=== PATIENT | female | born 1985 | race Caucasian/White ===

== ENCOUNTER 2019-06-20 08:32 | Emergency (ER) | payer OTHER, SELFPAY ==
--- NOTE | 2019-06-20 09:06 | ED.GENADULT ---
HPI - General Adult General Chief complaint: Upper Respiratory Infection Stated complaint: Left ear pain/Sore throat Time Seen by Provider: 06/20/19 09:06 Source: patient Mode of arrival: ambulatory Limitations: no limitations History of Present Illness HPI narrative: 34-year-old female patient presents to the [facility] with complaints of sore throat left ear pain that started last night. Patient states that she took some Tylenol last night for the pain but denies take anything this morning. Denies any fevers, runny nose, coughing, chest pain, shortness of breath or abdominal pain. Patient states she did get a flu shot this year. Patient denies any or breast-feeding at this time. Related Data Allergies Allergy/AdvReac Type Severity Reaction Status Date / Time ondansetron [From Zofran] Allergy Anxiety Verified 06/20/19 09:45 Review of Systems Review of Systems: Narrative: CONSTITUTIONAL: Denies fever, chills, or sweats. EYES: Denies visual changes, redness, or discharge. ENT: Denies rhinorrhea, congestion, positive left side sore throat, positive left otalgia. CARDIOVASCULAR: Denies chest pain, palpitations, or edema. RESPIRATORY: Denies cough or dyspnea. GASTROINTESTINAL: Denies abdominal pain, nausea, vomiting, or diarrhea. GENITOURINARY: Denies dysuria or hematuria. SKIN: Denies rash or itching. MUSCULOSKELETAL: Denies back pain, joint pain, or myalgia. NEUROLOGIC: Denies headache, numbness, or weakness. PSYCHIATRIC: Denies anxiety or depression. [facility] Social History Social History Gender identity (if verbalized by the patient): Female Comments At the time of my signature I agree with nursing past medical history, surgical, social, and family history. There is no relevant family history pertinent to the presenting complaint. Exam Narrative: Exam Narrative: GENERAL: Well-appearing, well-nourished, and in no acute distress. HEAD: Normocephalic, atraumatic. EYES: PERRLA and EOMI. ENT: Nares clear, no rhinorrhea or epistaxis. Mucous membranes moist. Posterior pharynx with redness and 2+ tonsil enlargement noted to the left side. Bilateral TMs appear cloudy but there is no erythema or foreign bodies in the canal. NECK: Supple. No lymphadenopathy CHEST: Clear to auscultation. No respiratory distress. HEART: Regular rate and rhythm. No murmur heard. Normal peripheral pulses. ABDOMEN: Soft, nontender, nondistended, normal active bowel sounds. EXTREMITIES: Normal range of motion. No edema. SKIN: Warm, dry, no rash. NEURO: No focal deficits. Alert and oriented x3. Course Reevaluation(s) Reevaluation #1: Notified patient that she is positive today for strep. Discussed with her I will discharge her home with an antibiotic for the strep infection and she can continue taking Tylenol and ibuprofen as needed for the pain. Discussed with patient that if she has worsening symptoms such as unable to swallow, or trouble breathing that she would need to go the ER for further evaluation and treatment. Patient verbalized understanding denies any other questions or concerns at this time. Date: 06/20/19 Time: 10:00 Vital Signs Vital signs: Vital signs reviewed. Medical Decision Making Differential Diagnosis Differential Diagnosis: Differential diagnosis: Allergic rhinitis, chronic sinusitis, tonsillitis, acute sinusitis, infectious mononucleosis, seasonal influenza, pertussis, diphtheria, meningococcal disease, viral syndrome, viral bronchitis, RSV. Plan of care for patient is to swab her today for strep. I will reassess her once this is resulted Critical Care Time Critical Care Time Critical Care Time: No Discharge Plan Discharge Clinical Impression: Strep pharyngitis Acute tonsillitis Qualifiers: Pharyngitis/tonsillitis etiology: streptococcus Streptococcal tonsillitis recurrence: non-recurrent Qualified Code(s): J03.00 - Acute streptococcal tonsillitis, unspe
[2019-06-20 09:38] VITALS: BP 110/69; PULSE 94; RESP 16; TEMP 36.8; O2SAT 98
== END 2019-06-20 10:09 | disposition home or self-care (01) ==
PROVIDERS: Emergency Provider Nurse Practitioner Family
DX: J02.0 Streptococcal pharyngitis (principal)
CPT/HCPCS: 87880; 99213; G0463

== ENCOUNTER 2025-03-18 16:07 | Emergency (ER) | payer OTHER, SELFPAY ==
--- OUTSIDE RECORDS SUMMARY | 2025-03-18 16:13 | XMS_ITS | Clinical Summary ---
Author Organization [facility] Care Team Providers Care Television Inspector Name Role Phone Tyler Escobar MD Primary Care Provider [phone] Benjy Fermin MD Unavailable [phone] Allergies Active Allergy Reactions Criticality Noted Date Comments Metoclopramide Anxiety Low 07/18/2017 Medications magnesium gluconate 200 mg tabletIndicatio ns:hypomagnesem ia 1 tablet (200 mg total) Active 25/iron fum/folic/dha (-1 ORAL) Take by mouth Active cholecalciferol (VITAMIN D-3) 2000 unit tablet Take 1 tablet (2,000 Units total) by mouth daily 30 tablet 7 2 Active Additional Information Patient not taking.Reported on 02/20/2025 mupirocin (BACTROBAN) 2 % ointment Apply topically 3 (three) times a day 22 g 3 Active Additional Information Patient not taking.Reported on 02/20/2025 escitalopram (LEXAPRO) 10 mg tablet Take 1 tablet (10 mg total) by mouth daily 30 tablet 2 5 Active Active Problems Problem Noted Date Diagnosed Date Fatigue 03/04/2025 Moderate major depression 03/04/2025 History of gestational diabetes 03/27/2022 Overview (03/27/2022): X 2. Diet controlled in 2018. Multigravida of advanced maternal age in third t rimester 03/27/2022 Overview (03/27/2022): Discussed increased risk of autosomal trisomies and offered testing. Class 1 obesity due to exces s calories without serious comorbidity with body mass index (BMI) of 31.0 to 31.9 in adult 08/28/2021 Assessment & Plan (08/28/2021 10:07 AM CDT): Discussed healthy diet and importance of regular physical activity. Mild episode of recurrent major depressive disor radha 08/28/2021 Assessment & Plan (08/28/2021 10:08 AM CDT): PHQ= 1 Sertraline increased today, will monitor response. Recommended counseling with patient. Discussed benefits of exercise, adequate sleep and healthy diet. Patient denies any SI/HI. Weight gain 04/08/2021 Assessment & Plan (04/08/2021 12:41 PM COMPUTER INFORMATION SYSTEMS INSTRUCTOR): Patient to follow up with PCP to discuss possibility of starting a weight loss medication. Informed patient I do not personally feel comfortable in managing prescription weight loss medication due to the possible side effects and need for frequent follow up/evaluation while taking. Encouraged to continue healthy eating and exercise. May find benefit in consulting with a nutritionists. List of local nutrition specialists in the area given that she can contact if desires. Hyperhidrosis 12/28/2020 Assessment & Plan (12/28/2020 5:39 PM CDT): Patient requesting referral to dermatology. Radial styloid tenosynovitis (de quervain) 12/28 Assessment & Plan (12/28/2020 5:39 PM CDT): Steroid prescribed. Discussed need to rest wrist, and reviewed proper body mechanics. Encouraged use of home brace. Follow up if no improvement or new/worsening symptoms. Encounter for screening for lipid disorder 12/28 Assessment & Plan (08/28/2021 10:06 AM CDT): 12/26/20 TC 256 TRG 76 HDL 76 LDL 165 Will repeat fasting labs and notify patient of results as they are received. Patient to continue to follow a healthy diet and weekly exercise. Assessment & Plan (12/28/2020 5:26 PM CDT): Will check labs today and make adjustments to medications as needed. Reviewed diet and exercise recommendations. BMI 29.0-29.9,adult 07/02/2020 Assessment & Plan (12/28/2020 7:45 PM CDT): Discussed healthy diet and importance of regular physical activity. Assessment & Plan (07/02/2020 4:08 PM COMPUTER INFORMATION SYSTEMS INSTRUCTOR): Reviewed need to lose weight, reviewed health benefits. Reviewed recommendations for daily intake & activity 20-30 minutes/day. Discussed healthy diet and importance of regular physical activity. Vitamin D deficiency 06/09/2017 Generalized anxiety disorder 10/25/2012 Overview (07/30/2016): Anxiety Assessment & Plan (08/28/2021 10:07 AM CDT): Will increase sertraline from 50-100 mg daily and monitor response. Discussed benefits of a cognitive behavioral therapy/counseling with patient. Follow-up in 12 weeks or sooner if experiencing any new or worsening moods. Assessment & Plan (12/28/2020 7:45 PM CDT): Doing well on sertraline and prn alprazolam. No changes made at this time. Discussed benefits of healthy lifestyle and suggested counseling. Discussed sharing house hold chores with spouse/family to decrease stress. Reviewed med Ses & scheduling. Alprazolam last filled 08/05/20. Assessment & Plan (07/03/2020 9:12 PM COMPUTER INFORMATION SYSTEMS INSTRUCTOR): States that anxiety not daily. Needing prn anxiolytic. Agreeable to alprazolam 0.5mg prn #20 sent. Reviewed med SE & scheduling. Discussed tolerance as a concern. Discussed hydroxyzine & buspar for panic attakcs. Will check w/medications at home (list of meds she's taken). Aware that daily med may be needed if increased frequency of alprazolam use. Aware that she needs to rtc q3mos for alprazolam refills. Reviewed red flags. Resolved Problems Problem Noted Date Diagnosed Date Resolved Date 39 weeks gestation of 09/28/2022 11/02/2022 Annual physical exam 12/28/2020 021 Assessment & Plan (12/28/2020 7:42 PM CDT): Tendinitis of both wrists 12/28/2020 Leukocytosis 12/28/2020 12/28/2020 Encounter for medical examin candida to establish care 07/02/2020 03/27/2022 Assessment & Plan (07/02/2020 4:07 PM COMPUTER INFORMATION SYSTEMS INSTRUCTOR): -reviewed screening guidelines: no family history of breast or colon cancer. -Denies SBE, encouraged monthly SBEs. Mammogram screening to start at 40 y/o unless concerns before that time. -Colonoscopy recommended at 50 years of age. -UTD on immunizations. -discussed diet/exercise: daily recommendations of 20-30 minutes physical activity daily, watch fat/sugar intake. -denies safety/violence. Wears seatbelt. Aware to not text/talk and drive. -does not smoke nor drink ETOH -lives at home with supportive family Anxiety and depression 07/02/202007/03 Diet controlled gestational diabetes mellitus (GDM) in third trimester 11/05/2017 11/02/2022 Depression 10/25/2012 07/03/2020 Overview (07/30/2016): Depression Vaginal delivery 01/24/2018 39 weeks gestation of 01/24/2018 Encounters Date Type Department Care Team Description 03/16/2025 Telephone [facility] [address] [place] [address] Krystle Chong, VARNISH MAKER HELPER 03/04/2025 Results Follow-Up [facility] [address] [place] [address] Tyler Escobar MD TSH, T4, free, Lipid panel, Additional followed-up results: 4 02/20/2025 11:45 AM CDT Lab [facility] [address] [place] [id number] Fatigue, unspecified type 02/20/2025 11:00 AM CDT Office Visit [facility] [address] [place] [id number] Tyler Escobar MD Fatigue, unspecified type (Primary Dx); Generalized anxiety disorder; Moderate major depression (HCC) 02/20/2025 Telephone [facility] [address] [place] [address] Krystle Chong, VARNISH MAKER HELPER from Last 3 Months Immunizations Immunization Administration Dates Next Due Influenza, Quadrivalent, Spl it, Preservative Free, Intramuscular 01/16/2022,2018 Influenza, Unspecified 04/26/2021(Deferr ed: Patient Refused),01/25/2020,01/24/2019 MMR 09/29/2022,12/12/2017 Moderna SARS-CoV-2 Monovalen t Vaccination (12+ YRS) 05/28/2020,04/30/2020 Tdap 09/29/2022 Surgical History Surgery Date Site/Laterality Comments OTHER SURGICAL HISTORY 04/26/2004 - 04/25/2005 : 12 hr labor OTHER SURGICAL HISTORY 04/26/2010 - 04/25/2011 : 15 hr labor OTHER SURGICAL HISTORY 10/18/2020 Tummy tuck w/ muscle repair. Medical History Medical History Date Comments Hx Other Medical 2004 ; Outc ome: 40 week 6 lb(s) 4 oz Male Hx Other Medical 2010 ; Outc ome: 39 week 8 lb(s) 4 oz Female Migraines Frequent headaches daily Vertigo Anxiety Depression Diabetes mellitus Family History Medical History Relation Name Comments Throat Cancer Father Lung cancer Maternal Grandmother Cancer, lung; Bipolar disorder Mother Bipolar dis order; Breast cancer Paternal Grandmother Cancer , breast; Diabetes Paternal Grandmother Diabete s mellitus; Relation Name Status Comments Brother Alive Father Maternal Grandmother Mother Alive Paternal Grandmother Social History Tobacco Use Types Packs/Day Years Used Date Smoking Tobacco: Never Smokeless Tobacco: Never Tobacco Cessation:Counseling Given: Not Answered Alcohol Use Standard Drinks/Week Comments No 0 (1 standard drink = 0.6 oz pur e alcohol) Social Connection and Isolation Panel Answer Date Recorded In a typical week, how many times do you talk on the phone with family, friends, or neighbors? More than three times a week 09/28/2022 How often do you get togethe r with friends or relatives? More than three times a week 09/28/2022 How often do you attend chur or confucianism services? More than 4 times per year 09/28/2022 Do you belong to any clubs o r organizations such as druze groups, unions, fraternal or athletic groups, or school groups? Yes 09/28/2022 How often do you attend meet ings of the clubs or organizations you belong to? More than 4 times per year 09/28/2022 Are you , , di vorced, , never , or living with a partner? 09/28/2022 AUDIT-C Answer Date Recorded Q1: How often do you have a drink containing alc ohol? Never 09/28/2022 Average Number of Drinks Not on file 023 Frequency of Binge Drinking Not on file 08/2022 Overall Financial Resource Strain (CARDIA) Answe r Date Recorded How hard is it for you to pa y for the very basics like food, housing, medical care, and heating? Not hard at all 09/28/2022 PHQ-2 Answer Date Recorded PHQ-2 Total Score (If total score is 3 or more points, staff should administer the PHQ-9) 6 02/20/2025 [facility] Occupational Stress Questionnaire Answer Date Recorded Do you feel stress - tense, restless, nervous, or anxious, or unable to sleep at night because your mind is troubled all the time - these days? Not at all 09/28/2022 Exercise Vital Sign Answer Date Recorde d On average, how many days pe r week do you engage in moderate to strenuous exercise (like a brisk walk)? 1 day 09/28/2022 On average, how many minutes do you engage in exercise at this level? 20 min 09/28/2022 Hunger Vital Sign Answer Date Recorded Within the past 12 months, y ou worried that your food would run out before you got the money to buy more. Never true 09/29/19 23 Within the past 12 months, t he food you bought just didn't last and you didn't have money to get more. Never true 09/28/2022 PRAPARE - Transportation Answer Date Re corded In the past 12 months, has l ack of transportation kept you from medical appointments or from getting medications? No 08/2022 In the past 12 months, has l ack of transportation kept you from meetings, work, or from getting things needed for daily living? No 09/28/2022 Housing Stability Vital Sign Answer Hang e Recorded In the last 12 months, was t here a time when you were not able to pay the mortgage or rent on time? No 09/28/2022 In the last 12 months, how many places have you lived? 1 09/28/2022 In the last 12 months, was t here a time when you did not have a steady place to sleep or slept in a chcf (including now)? No 09/28/2022 PHQ-9 Answer Date Recorded PHQ-9 Total Score 13 02/20/2025 Personal Safety Answer Date Recorded Have you ever been in or are you currently in a harmful physical or emotional relationship or is someone making you feel afraid or unsafe? Denies 09/28/2022 Comments Unknown Sex and Gender Information Value Date Recorded Sex Assigned at Not on file Legal Sex Female 10:14 AM COMPUTER INFORMATION SYSTEMS INSTRUCTOR Gender Identity Not on file Sexual Orientation Not on file Obstetrics History Para Term AB IAB SAB Ectopic Multiple Livin g Live Births 4 4 4 0 4 4 Date Outcome GA Total Labor Labor/2nd/3rd Weight Sex Type Anes PTL Cora A1 A5 Name Clin 5 Term 40w 0d M Vag-Sp ont None N Livin g Complications:None 1 Term 39w 0d F Vag-Sp ont None N Livin g Complications:None 2017 Term 39w 4d 8h 01m 6h 20m/1h 32m/0h 09m 3.494 kg (7 lb 11.3 oz) M Vag-Sp ont Epidur al N Livin g 8 9 SUNITA HARRISON,B MARCELA Brown, Nico Medina MD Complications:None Delivery [facility] 2022 Term 39w 6d 0h 30m 0h 10m/0h 15m/0h 05m 3.353 kg (7 lb 6.3 oz) M Vagina l Epidur al N Livin g 9 9 RODOLFO ,BOYS AMANT SETH Nico Brown MD Complications:None Delivery [facility]) Last Filed Vital Signs Vital Sign Reading Time Taken Comments Blood Pressure 102/68 02/20/2025 11:07 AM CDT Pulse 69 02/20/2025 11:07 AM CDT Temperature 36.7 C (98 F) 02/20/2025 11:07 AM CDT Respiratory Rate 18 02/20/2025 11:07 AM CDT Oxygen Saturation 99% 02/20/2025 11:07 AM CDT room air Inhaled Oxygen Concentration - - Weight 59 kg (130 lb) 02/20/2025 11:07 AM CDT Height 154.9 cm (5' 1) 02/20/2025 11:07 AM CDT Body Mass Index 24.56 02/20/2025 11:07 AM CDT Plan of Treatment Health Maintenance Due Date Last Done Comments Hepatitis B Screening 2005 HPV Vaccines (1 - 3-dose SCDM series) 2014 Regular Well Visit/Exam 18-64 04/08/2022 04/08/2021, 04/04/2020 Varicella Vaccines (1 of 2 - 13+ 2-dose series) 10/27/2022 Cervical Cancer Screening 03/27/20232021, 04/08/2021, 04/04/2020, Additional history exists Covid-19 Vaccine (3 - 2024- season) 2024 05/28/2020, 04/30/2020 Influenza Vaccine (#1) 2024 2, 01/25/2020, 01/24/2019, Additional history exists Depression Screening 02/20/2026 02/20/2025, 02/20/2025, 08/12/2022, Additional history exists DTaP/Tdap/Td Vaccine (2 - Td or Tdap) 09/29/2032 09/29/2022 Hepatitis C Screening Completed 03/27/2022, 018 Pneumococcal vaccine <65 Aged Out No longer eligible based on patient's age to complete this topic Procedures Procedure Name Priority Date/Time Associated Diagnosis Comments EGFR Routine 02/20/2025 11:41 AM CDT Fatigue, unspecified type DIFFERENTIAL AUTO Routine 02/20/2025 11: 41 AM CDT Fatigue, unspecified type CBC WITH AUTO DIFFERENTIAL Routine 02/20/2025 11:41 AM CDT Fatigue, unspecified type COMPREHENSIVE METABOLIC PANEL Routine 02/20/2025 11:41 AM CDT Fatigue, unspecified type LIPID PANEL Routine 02/20/2025 11:41 AM CDT Fatigue, unspecified type T4, FREE Routine 02/20/2025 11:41 AM CDT Fatigue, unspecified type TSH Routine 02/20/2025 11:41 AM CDT Fatigue, unspecified type HEPATITIS C ANTIBODY Routine 03/27/2022 2:14 PM COMPUTER INFORMATION SYSTEMS INSTRUCTOR Encounter for supervision of other normal in first trimester PAP AND HIGH RISK HPV, REFLEX TO GENOTYPING Routine 03/27/2022 2:01 PM COMPUTER INFORMATION SYSTEMS INSTRUCTOR Encounter for supervision of other normal in first trimester from Last 3 Months or Most Recently Relevant to Health Maintenance Results * eGFR (02/20/2025 11:41 AM CDT) eGFR 66 >=60 mL/min/1. 73 m2 Comment: Interpretive Data Reference Interval Normal >/= 90 mL/min/1.73m2 Mildly decreased* 60 - 89 mL/min/1.73m2 Mildly to moderately decreased 45 - 59 mL/min/1.73m2 Moderately to severely decreased 30 - 44 mL/min/1.73m2 Severely decreased 15 - 29 mL/min/1.73m2 Kidney Failure < 15 mL/min/1.73m2 *Relative to young adult level Estimated glomerular filtration rate is determined by the 2020 CKD-EPI equation recommended by the National Kidney Foundation (A Unifying Approach to GFR Estimation: Recommendations of the NKF-ASK Task Force on Reassessing the Inclusion of Race in Diagnosing Kidney Disease, JASN 2020). The CKD-EPI equation should not be used for patients with unstable renal function and has not been validated in children and those over 70. Current interpretive data was last reviewed 2021. Testing performed by: [facility], [address] [place] [address]., [id number] Blood 02/20/2025 11:4 1 AM CDT 02/20/2025 6:28 PM CDT Tyler Escobar MD LAB BLOOD ORDERABLES Bina baldwin Result KATHIE GUZMAN ([place]) 1 [facility] Department [place] [address] * (ABNORMAL) Differential, auto (02/20/2025 11:41 AM CDT) Neutrophil abs 6.70(H) 1.50 - 6.50 K/cumm Comment:Testing performed by : [facility], [address] [place] [address]., [id number] Imm gran abs 0.04 0.00 - 0.10 K/cumm [facility] ([place]) Comment:Testing performed by : [facility], [address] [place] [address]., [id number] Lymphocyte abs 1.80 0.80 - 3.30 K/cumm [facility] ([place]) Comment:Testing performed by : [facility], [address] [place] [address]., [id number] Monocyte abs 0.65 0.20 - 0.80 K/cumm [facility] ([place]) Comment:Testing performed by : [address] [address] Eosinophil abs 0.05 0.00 - 0.50 K/cumm [facility] ([place]) Comment:Testing performed by : [address] [address] Basophil abs 0.03 0.00 - 0.10 K/cumm [facility] ([place]) Comment:Testing performed by : [facility], [address] [place] [address]., [id number] Neutrophil pct 72.4 % [facility] ([place]) Comment: Interpretive Data Percent cell count reference ranges are not reported, since discordance with absolute values may lead to misinterpretation of CBC data. Current Interpretive Data was last revised on 2017. Testing performed by: [facility], [address] [place] [address]., [address] Imm gran pct 0.4 % [facility] ([place]) Comment: Interpretive Data Percent cell count reference ranges are not reported, since discordance with absolute values may lead to misinterpretation of CBC data. Current Interpretive Data was last revised on 2017. Testing performed by: [address] [address] Lymphocyte pct 19.4 % [facility] ([place]) Comment: Interpretive Data Percent cell count reference ranges are not reported, since discordance with absolute values may lead to misinterpretation of CBC data. Current Interpretive Data was last revised on 2017. Testing performed by: [address] [address] Monocyte pct 7.0 % [facility] ([place]) Comment: Interpretive Data Percent cell count reference ranges are not reported, since discordance with absolute values may lead to misinterpretation of CBC data. Current Interpretive Data was last revised on 2017. Testing performed by: [facility], [address] [place] [address]., [address] Eosinophil pct 0.5 % [facility] ([place]) Comment: Interpretive Data Percent cell count reference ranges are not reported, since discordance with absolute values may lead to misinterpretation of CBC data. Current Interpretive Data was last revised on 2017. Testing performed by: [address] [address] Basophil pct 0.3 % [facility] ([place]) Comment: Interpretive Data Percent cell count reference ranges are not reported, since discordance with absolute values may lead to misinterpretation of CBC data. Current Interpretive Data was last revised on 2017. Testing performed by: [address] [address] Blood 02/20/2025 11:4 1 AM CDT 02/20/2025 5:38 PM CDT Tyler Escobar MD LAB BLOOD ORDERABLES Bina denny Result [facility] ([place]) 1 [facility] Department [place] [address] * (ABNORMAL) CBC with auto differential (02/20/2025 11:41 AM CDT) WBC 9.27 3.80 - 9.90 K/cumm Comment:Testing performed by : [address], [address] Hgb 12.8 11.9 - 15.5 g/dL [facility] ([place]) Comment:Testing performed by : [address], [address] Hct 40.0 35.6 - 45.5 % [facility] ([place]) Comment:Testing performed by : [address], [address] Plt 364 150 - 400 K/cumm [facility] ([place]) Comment:Testing performed by : [address], [address] MPV 11.0 9.1 - 12.3 fL [facility] ([place]) Comment:Testing performed by : [address], [address] RBC 4.45 3.90 - 5.20 M/cumm [facility] ([place]) Comment:Testing performed by : [address], [address] MCV 89.9 81.3 - 96.4 fL [facility] ([place]) Comment:Testing performed by : [address], [address] MCH 28.8 27.1 - 33.3 pg [facility] ([place]) Comment:Testing performed by : [address], [address] MCHC 32.0(L) 32.3 - 35.7 g/dL [facility] ([place]) Comment:Testing performed by : [facility], [address] [place] [address], [id number] RDW CV 12.5 11.1 - 14.9 % [facility] ([place]) Comment:Testing performed by : [facility], [address] [place] [address], [id number] RDW SD 41.4 35.7 - 48.1 fL [facility] ([place]) Comment:Testing performed by : [facility], [address] [place] [address], [id number] NRBC abs 0.00 0.00 - 0.01 K/cumm KATHIE GUZMAN ([place]) Comment:Testing performed by : [facility], [address] [place] [address], [id number] Blood 02/20/2025 11:4 1 AM CDT 02/20/2025 5:38 PM CDT Tyler Escobar MD LAB BLOOD ORDERABLES Bina l Result Performing Organization Address City/[facility]/ZIP Co de Phone Number [facility] ([place]) 1 [facility] Department [place] [address] * TSH (02/20/2025 11:41 AM CDT) Pathologist [facility] Thyroid Stimulating Hormone 0.89 0.30 - 4.20 mcIUnit/mL Comment:Testing performed by : [facility], [address] [place] [address], [id number] Blood 02/20/2025 11:4 1 AM CDT 02/20/2025 5:38 PM CDT Tyler Escobar MD LAB BLOOD ORDERABLES Bina l Result KATHIE GUZMAN ([place]) 1 [facility] [employer] [place] [address] * T4, free (02/20/2025 11:41 AM CDT) Free T4 1.23 0.90 - 1.70 ng/dL Comment:Testing performed by : [address] [address] Blood 02/20/2025 11:4 1 AM CDT 02/20/2025 5:38 PM CDT us Tyler Escobar MD LAB BLOOD ORDERABLES Bina denny Result KATHIE GUZMAN ([place]) 1 [facility] Department [place] [address] * (ABNORMAL) Lipid panel (02/20/2025 11:41 AM CDT) Cholesterol 224(H) 30 - 199 mg/dL Comment: Interpretive Data Ages < or = 19 years Acceptable: <170 mg/dL Borderline high: 170-199 mg/dL High: >or= 200 mg/dL Ages > or = 20 years Desirable: <200 mg/dL Borderline high: 200-239 mg/dL High: >or= 240 mg/dL Literature References: 1. Expert Panel on Integrated Guidelines for Cardiovascular Health and Risk Reduction in Children and Adolescents. Pediatrics 2011;128:S213 2. NCEP Expert Panel. Circulation 2004;110:227 Current Interpretive Data was last revised on 2017. Testing performed by: [facility], [address] [place] [address]., [id number] Triglycerides 80 <=149 mg/dL KATHIE GUZMAN ([place]) Comment: Interpretive Data Ages < or = 9 years Acceptable: <75 mg/dL Borderline high: 75-99 mg/dL High: >or= 100 mg/dL Ages 10 to 20 years Acceptable: <90 mg/dL Borderline high: 90-129 mg/dL High: >or= 130 mg/dL Ages > or = 20 years Desirable: <150 mg/dL Borderline high: 150-199 mg/dL High: 200-499 mg/dL Very high: >or= 499 mg/dL Literature References: 1. Expert Panel on Integrated Guidelines for Cardiovascular Health and Risk Reduction in Children and Adolescents. Pediatrics 2011;128:S213 2. NCEP Expert Panel. Circulation 2004;110:227 Current Interpretive Data was last revised on 2017. Testing performed by: [facility], [address] [place] [address] [place]., [address] HDL 75 >=40 mg/dL KATHIE GUZMAN ([place]) Comment: Interpretive Data Ages < or = 19 years Acceptable: >45 mg/dL Borderline low: 40-45 mg/dL Low: <40 mg/dL Ages > or = 20 years Desirable: >or= 60 mg/dL Low: <40 mg/dL Literature References: 1. Expert Panel on Integrated Guidelines for Cardiovascular Health and Risk Reduction in Children and Adolescents. Pediatrics 2011;128:S213 2. NCEP Expert Panel. Circulation 2004;110:227 Current Interpretive Data was last revised on 2017. Testing performed by: [facility], [address] [place] [address]., [id number] LDL, calculated 135(H) <=129 mg/dL KATHIE GUZMAN ([place]) Comment: Interpretive Data Ages < or = 19 years Acceptable: <110 mg/dL Borderline high: 110-129 mg/dL High: >or= 130 mg/dL Ages > or = 20 years Optimal: <100 mg/dL Near optimal: 100-129 mg/dL Borderline high: 130-159 mg/dL High: >160 mg/dL Calculated using the [place] LDL-C estimating equation. This equation was implemented on 2023. Prior to this date LDL-C was estimated using the Friedew[place] equation. Literature References: 1. Expert Panel on Integrated Guidelines for Cardiovascular Health and Risk Reduction in Children and Adolescents. Pediatrics 2011;128:S213 2. NCEP Expert Panel. Circulation 2004;110:227 3. Mustapha Menchaca et al. LISA Cardiol. 2019August 24;5(5):540-548. doi: 10.1001/[email or web address] Current Interpretive Data was last revised on 2023. Testing performed by: [facility], [address] [place] [address]., [address] Non-HDL Cholesterol 149 mg/dL KATHIE GUZMAN (DIOMEDES) Comment: Interpretive Data Ages < or = 19 years Acceptable: <120 mg/dL Borderline high: 120-144 mg/dL High: >145 mg/dL Ages > or = 20 years When triglycerides are >200 mg/dL, Non-HDL cholesterol is a secondary target of therapy with treatment goals that are 30 mg/dL greater than the LDL cholesterol target. Literature References: 1. Expert Panel on Integrated Guidelines for Cardiovascular Health and Risk Reduction in Children and Adolescents. Pediatrics 2011;128:S213 2. NCEP Expert Panel. Circulation 2004;110:227 Current Interpretive Data was last revised on 2017. Testing performed by: [facility], [address] [place] [address]., [address] Chol/HDL ratio 3 [facility] (DIOMEDES) Comment:Testing performed by : [address], [address] Blood 02/20/2025 11:4 1 AM CDT 02/20/2025 5:38 PM CDT Tyler Escobar MD LAB BLOOD ORDERABLES Bina baldwin Result KATHIE GUZMAN (DIOMEDES) 1 [facility] Department [place] [address] * (ABNORMAL) Comprehensive metabolic panel (02/20/2025 11:41 AM CDT) Sodium 139 135 - 145 mmol/L Comment:Testing performed by : [address] [address] Potassium, pl 4.1 3.3 - 4.9 mmol/L [facility] (DIOMEDES) Comment:Testing performed by : [address] [address] Chloride 102 97 - 110 mmol/L [facility] (DIOMED[place]) Comment:Testing performed by : [address] [address] CO2 26 22 - 32 mmol/L [facility] (DIOMEDES) Comment:Testing performed by : [address], [address] Anion gap 11 2 - 15 mmol/L [facility] (DIOMED[place]) Comment:Testing performed by : [address] [address] BUN 10 6 - 25 mg/dL ALISONNER [facility] (DIOM[place]) Comment:Testing performed by : [address], [address] Creatinine 1.11(H) 0.60 - 1.10 mg/dL [facility] (DIOM[place]) Comment:Testing performed by : [address] [address] Glucose 84 70 - 199 mg/dL [facility] ([place]OM[place]) Comment: Interpretive Data Fasting glucose >/= 126 mg/dl is diagnostic for diabetes. Fasting is defined as no caloric intake for at least 8 hours. Fasting glucose between 100 mg/dl to 125 mg/dl is diagnostic of prediabetes. In a patient with classic symptoms of hyperglycemia or hyperglycemic crisis, a random glucose >/= 200 mg/dl is diagnostic for diabetes. In the absence of unequivocal hyperglycemia, results should be confirmed by repeat testing. The classification and Diagnosis of Diabetes Diabetes Care 2021; 46: S19-S40. Current interpretive data was last revised 2022. Testing performed by: [address] [address] Calcium 9.7 8.5 - 10.3 mg/dL [facility] (DIOM[place]) Comment:Testing performed by : [address] [address] Bilirubin, total 0.6 0.1 - 1.2 mg/dL [facility] ([place]OM[place]) Comment:Testing performed by : [address] [address] Protein, pl 7.7 6.5 - 8.5 g/dL [facility] (DIOM[place]) Comment:Testing performed by : [address] [address] Albumin 4.6 3.5 - 5.0 g/dL [facility] ([place]OM[place]) Comment:Testing performed by : [address] [address] Alk phos 77 40 - 130 Units/L [facility] (DIOMEDES) Comment:Testing performed by : [address] [address] ALT 10 7 - 45 Units/L [facility] ([place]OM[place]) Comment: Lipemia present. Results may be affected. Testing performed by: [address], [address] AST 22 10 - 45 Units/L [facility] (DIOM[place]ES) Comment: Lipemia present. Results may be affected. Testing performed by: [facility], [address] [place] [address]., [address] Blood 02/20/2025 11:4 1 AM CDT 02/20/2025 5:38 PM CDT Tyler Escobar MD LAB BLOOD ORDERABLES Bina l Result Performing Organization Address City/[facility] Co de Phone Number KATHIE GUZMAN (FREDONIA) 1 [facility] [place] [address] * Hepatitis C antibody (03/27/2022 2:14 PM COMPUTER INFORMATION SYSTEMS INSTRUCTOR) Hep C Ab Nonreactive Nonreactive KATIHE GUZMAN (FREDONIA) Comment: Interpretive Data Nonreactive: Antibodies to HCV not detected. Does NOT exclude the possibility of recent exposure to HCV. Equivocal: Equivocal for HCV antibodies. Supplemental molecular testing will be automatically performed to determine infection status in accordance with current CDC screening recommendations. Reactive: Positive for HCV antibodies. This may represent current or past HCV infection. Supplemental molecular testing will be automatically performed to determine current infection status in accordance with current CDC screening recommendations. Interpretive data was last revised on 2019. Testing performed by: [facility], [address] [place] [address], [place]., [address] Blood 03/27/2022 2:14 PM COMPUTER INFORMATION SYSTEMS INSTRUCTOR 03/28/2022 1:39 PM COMPUTER INFORMATION SYSTEMS INSTRUCTOR Benjy Fermin MD LAB MICROBIOLOGY - GENERAL ORDERABLES Final Result Performing Organization Address City/[facility] Co de Phone Number KATHIE GUZMAN (FREDONIA) 1 [facility] [place] [address] * Pap and High Risk HPV, reflex to Genotyping (03/27/2022 2:01 PM COMPUTER INFORMATION SYSTEMS INSTRUCTOR) CLINICAL INFORMATION: [employer] [facility] Comment: LMP [employer] [facility] Comment:12-28-21 Previous Pap [employer] [facility] Comment:None given Prev. Bx [employer] [facility] Comment:None given SOURCE: [employer] [facility] Comment:Cervix, Endocervix Pap, specimen adequacy [employer] [facility] Comment: Satisfactory for evaluation. Endocervical/transformation zone component present. HPV interp [facility] Comment:Negative for intraep ithelial lesion or malignancy. [employer] [facility] Comment: LM, CT(ASCP) CT screening location: [place] [address] [address] [place] [address] Comment [facility] Comment: EXPLANATORY NOTE: The Pap is a screening test for cervical cancer. It is not a diagnostic test and is subject to false negative and false positive results. It is most reliable when a satisfactory sample, regularly obtained, is submitted with relevant clinical findings and history, and when the Pap result is evaluated along with historic and current clinical information. Human papillomavirus DNA, High Risk E6/E7 Not Detected NOT DETECTED [facility] /[facility] [place] Comment: Not Detected High Risk HPV types (16,18,31,33,35,39,45,51,52, 56,58,59,66,68) were not detected. Other HPV types which cause anogenital lesions may be present. The significance of the other types of HPV in malignant processes has not been established. Methodology: Real Time PCR Thin prep (None) 03/27/2022 2:01 PM COMPUTER INFORMATION SYSTEMS INSTRUCTOR 03/28/2022 7:13 AM COMPUTER INFORMATION SYSTEMS INSTRUCTOR Benjy Fermin MD LAB CYTOLOGY ORDERABLES Fi [place]al [place] [address] [place] [phone] [facility] [address] [place] [address] from Last 3 Months or Most Recently Relevant to Health Maintenance Insurance [facility]ERI [facility] [employer]ITH [employer]ERCIAL GENERIC Member Subscriber Plan / Payer (Ef fective 2022-Present) Name:Dorinda Connolly Relation to Subscriber:Spouse Name:Sebastián Connolly Date of :1987 (Home) Address: [facility] [place] [address] Payer ID:[id number] Group ID:[id number] Type:COMMERCIAL Address: [address] [address] [place] [address] Advance Directives For more information, please contact: [phone] * Full Code (Latest Code Status on File) Date Activated Date Inactivated Comments 09/28/2022 6:32 AM 09/29/2022 10:28 PM Full CPR in c ase of cardiopulmonary arrest * Full Code Date Activated Date Inactivated Comments 12/09/2017 7:58 PM 12/12/2017 4:03 PM Full CPR in case of cardiopulmonary arrest Care Teams Television Inspector Relationship Specialty Start Date End Date Tyler Escobar MD [address] [facility] [address] PCP - General Family Medicine 08/05/20 Benjy Fermin MD [address] [place] [address] [place] [address] Insurance Agency Sales Manager Obstetrics and Gynecology 09/29/22
[2025-03-18 16:14] VITALS: BP 120/83; PULSE 85; RESP 16; TEMP 36.6; O2SAT 99
--- NOTE | 2025-03-18 16:31 | ED_ITS ---
HPI - URI/Sore Throat General Chief Complaint: Ear Stated Complaint: Sore Throat/Ear Pain Time Seen by Provider: 03/18/25 16:20 Source: patient, RN notes reviewed and old records reviewed Mode of arrival: ambulatory Limitations: no limitations History of Present Illness HPI Narrative: 40 year old female presents to [facility] care with complaints of sore throat which started today along with bilateral ear pain. Patient reports no known fevers, chills or body aches has taken Ibuprofen for her symptoms. Patient reports that spouse is ill with similar symptoms. MD elicited complaint: sore throat and other (ear pain) Onset (ago): unknown Pain scale (0-10): 6 Able to tolerate fluids by mouth: Yes Treatments prior to arrival: ibuprofen Related Data Home Medications ?Medication ?Instructions ?Recorded ?Confirmed ?Last Taken ?Type escitalopram oxalate 10 mg tablet mg 03/18/25 Unknown History Allergies Allergy/AdvReac Type Severity Reaction Status Date / Time ondansetron (From Zofran) Allergy Anxiety Verified 03/18/25 16:22 Review of Systems Review of Systems: CONSTITUTIONAL: Reports malaise, no chills, sweats, or fever. EYES: Denies visual changes, redness, or discharge. ENT: Reports no rhinorrhea, congestion, sinus pain, +otalgia and sore throat. CARDIOVASCULAR: Denies chest pain, palpitations, or edema. RESPIRATORY: Reports no cough.? Denies dyspnea. GASTROINTESTINAL: Denies abdominal pain, nausea, vomiting, diarrhea SKIN: Denies rash or itching. MUSCULOSKELETAL: Denies myalgia. NEUROLOGIC: Denies headache. All systems reviewed & are unremarkable except as noted in HPI and below PMFSH Past Medical History Medical History Anxiety and depression Social History Social History Smoking status: Never smoker Alcohol intake: current Alcohol use details: social Substance use type: does not use Gender identity (if verbalized by the patient): Female Comments At time of signature, agree with nursing past medical, surgical, social and family history. There is no relevant family history pertinent to the presenting complaint Exam Narrative: GENERAL: Well-appearing, well-nourished, and in no acute distress. HEAD: Normocephalic EYES: PERRLA, conjunctivae clear ENT: Nares clear, turbinates edematous and erythematous, clear discharge. Mucous membranes moist. TM pearly jeronimo with dull light reflex bilaterally; no tragal tenderness. Oropharynx erythematous with white lesions. Tonsils red enlarged and without exudate, no drooling, no hoarseness, no trismus, uvula midline. NECK: Supple. No lymphadenopathy CHEST: Clear to auscultation, breath sounds equal. No wheezing, rhonchi, rales, or stridor. No respiratory distress, speaks in full sentences. no cough SAO2 99% on room air HEART: Regular rate and rhythm. No murmur heard. SKIN: Warm, dry, no rash. NEURO: Alert and oriented x3. PSYCH: Normal mood and affect Course Course Emergency Course: Patient is aware of diagnosis, understands and agrees to treatment plan.? Anticipatory guidance given.? Patient agrees to follow-up as directed and is aware of reasons to seek care at the emergency department. Portions of this record may have been created with voice recognition software Level of Care: Express Care Visit Vital Signs Vital signs: Vital Signs Temperature 36.6 C 03/18/25 16:14 Pulse Rate 85 03/18/25 16:14 Respiratory Rate 16 03/18/25 16:14 Blood Pressure 120/83 03/18/25 16:14 Pulse Oximetry 99 03/18/25 16:14 Oxygen Delivery Room Air 03/18/25 16:14 Temperature 36.6 C 03/18/25 16:14 Pulse Rate 85 03/18/25 16:14 Respiratory Rate 16 03/18/25 16:14 Blood Pressure 120/83 03/18/25 16:14 Pulse Oximetry 99 03/18/25 16:14 Oxygen Delivery Room Air 03/18/25 16:14 Reviewed MDM - URI/Sore Throat MDM Narrative Medical decision making narrative: Differential diagnosis considered: Enamorado virus, strep pharyngitis, allergic rhinitis, upper respiratory tract infection, sinusitis, rhinosinusitis, n asopharyngitis. viral pharyngitis, otitis media, otitis externa, pneumonia, bronchitis, viral cough syndrome, viral syndrome, and influenza.? Exam findings show no acute concerns or changes; patient is non-toxic appearing and is in no distress.? Patient is appropriate for outpatient treatment and follow-up. Differential Diagnosis Differential diagnosis: Likely upper respiratory infection, viral infection, pharyngitis and other (strep pharyngitis) Medical Records Attestation: I reviewed the patient's medical records. Lab Data Attestation: I reviewed the patient's lab results. Lab results narrative: strep screen positive Critical Care Time Critical Care Time Critical Care Time: No Discharge Plan Discharge Clinical Impression: Acute streptococcal pharyngitis Patient Disposition: Home Condition: Stable Instructions: Antibiotic Form, Strep Throat (ED) Additional Instructions: You tested positive for Group A strep . Take the entire course of antibiotics. Throw away your current toothbrush and begin using a new toothbrush in 48 hours in order to prevent re-infection. Sanitize all reusable water bottles . Do not share items with others. Salt water gargles may alleviate some of the throat discomfort. You can take Tylenol or ibuprofen per the package instructions for pain/fever. If your symptoms persist, change or worsen significantly before you can contact your personal physician then please, without delay, go to the emergency department for further evaluation. Follow-up with PCP in 7-10 days or sooner if needed Follow up with PCP soon in regards to your blood pressure which is elevated above threshold for referral. Blood pressure above 120/80 may indicate pre- hypertension. Patient Language: Georgian Prescriptions: New amoxicillin 500 mg capsule 1,000 mg PO Q12H Qty: 40 0RF No Action escitalopram oxalate 10 mg tablet Follow-up/Referrals: Harms,Tyler Ray M.D. [Primary Care Provider] Time of Disposition: 16:35 Quality [place] Coma Scale Eyes: Open Verbal: Oriented and Alert Motor: Follows Commands [place] Coma Total Score: 15
[2025-03-19 11:51] LABS: EDSTREPNEGPOS1 Positive (Negative)
== END 2025-03-18 16:43 | disposition home or self-care (01) ==
PROVIDERS: Emergency Provider Registered Nurse; PCP Family Medicine
DX: J02.0 Streptococcal pharyngitis (principal); F41.9 Anxiety disorder, unspecified; F32.A Depression, unspecified
CPT/HCPCS: 87880; 99213; G0463